=== PATIENT | female | born 1945 | race African-American/Black ===

== ENCOUNTER 2017-12-20 07:18 | Outpatient (CLI) | payer OTHER ==
[~2017-12-20 07:18] MED LIST: AMBIEN10 MG PO; BIOTIN0.5 GM MC; BUSPAR15 MG PO; CIPRO750 MG PO; CLONAZEPAM0.5 MG PO; CRESTOR5 MG PO; Colace 100MG PO; ECOTRIN81 MG PO; ENALAPRIL-HCTZ1 TAB PO; FOSAMAX70 MG PO; IBANDRONATE SO150 MG PO; NEURONTIN PO; OMEGA 3 FISH OI1 CAP PO; PERCOCET 5/3251 TAB PO; PREMARIN1.25 MG PO; SERTRALINE HCL100 MG PO; VITAMINA C; ZOLOFT100 MG PO
== END 2017-12-20 07:27 | disposition home or self-care (01) ==
LOC: RAD 07:18
DX: J32.8 Other chronic sinusitis (principal)

== ENCOUNTER 2017-12-28 08:50 | Outpatient (CLI) | payer OTHER ==
[~2017-12-28] VITALS: Ht 165.1 cm; Wt 63.5 kg
== END 2017-12-28 10:04 | disposition home or self-care (01) ==
LOC: OFIC 805 08:50
DX: H60.592 Other noninfective acute otitis externa, left ear (principal); H92.02 Otalgia, left ear; R07.0 Pain in throat; K21.0 Gastro-esophageal reflux disease with esophagitis

== ENCOUNTER 2018-01-11 07:58 | Outpatient (CLI) | payer OTHER | END 2018-01-11 07:59 | disposition home or self-care (01) | LOC: RX STUDY 07:58 | DX: R10.13 Epigastric pain (principal) ==

== ENCOUNTER 2018-02-15 07:07 | Outpatient (CLI) | payer OTHER | END 2018-02-15 07:33 | disposition home or self-care (01) | LOC: TOM 07:07 | DX: R10.9 Unspecified abdominal pain (principal) ==

== ENCOUNTER 2018-02-28 07:23 | Outpatient (CLI) | payer OTHER | END 2018-02-28 07:32 | disposition home or self-care (01) | LOC: NUCLEAR 07:23 | DX: R10.11 Right upper quadrant pain (principal) | CPT/HCPCS: 78227; A9537 ==

== ENCOUNTER 2018-08-21 07:31 | Emergency (ER) | payer OTHER ==
[~2018-08-21] VITALS: Ht 165.1 cm; Wt 61.7 kg
[2018-08-21] MEDS ORDERED: ATORVASTATIN CA10 MG (07:57)
[2018-08-21] MEDS ORDERED: VALIUM PO (15:46)
== END 2018-08-21 16:02 | disposition home or self-care (01) ==
LOC: ER 07:31
DX: G50.0 Trigeminal neuralgia (principal); R42 Dizziness and giddiness

== ENCOUNTER 2018-08-23 14:20 | Outpatient (CLI) | payer OTHER ==
[~2018-08-23 14:20] MED LIST changes: +ATORVASTATIN CA10 MG; +VALIUM PO
== END 2018-08-23 14:25 | disposition home or self-care (01) ==
LOC: MRI 14:20
DX: G50.0 Trigeminal neuralgia (principal)
CPT/HCPCS: 70551

== ENCOUNTER 2018-09-02 08:26 | Outpatient (CLI) | payer OTHER | END 2018-09-02 08:31 | disposition home or self-care (01) | LOC: SONOGRAMA 08:26 → MAMO-SONO 10:45 | DX: R10.84 Generalized abdominal pain (principal) ==

== ENCOUNTER 2019-01-10 13:30 | Outpatient (CLI) | payer OTHER | END 2019-01-10 13:32 | disposition home or self-care (01) | LOC: RAD 13:30 | DX: I11.9 Hypertensive heart disease without heart failure (principal); R06.02 Shortness of breath ==

== ENCOUNTER 2019-01-11 08:53 | Outpatient (CLI) | payer OTHER | END 2019-01-11 08:58 | disposition home or self-care (01) | LOC: LAB 08:53 | DX: R06.02 Shortness of breath (principal) ==

== ENCOUNTER 2019-01-14 10:48 | Outpatient (CLI) | payer OTHER | END 2019-01-14 11:30 | disposition home or self-care (01) | LOC: NUCLEAR 10:48 | DX: I26.99 Other pulmonary embolism without acute cor pulmonale (principal) | CPT/HCPCS: 78580; A9540 ==

== ENCOUNTER 2019-02-03 07:32 | Outpatient (CLI) | payer OTHER | END 2019-02-03 07:36 | disposition home or self-care (01) | LOC: MAMO-SONO 07:32 | DX: Z12.31 Encounter for screening mammogram for malignant neoplasm of breast (principal); Z87.898 Personal history of other specified conditions; E55.9 Vitamin D deficiency, unspecified; M85.80 Other specified disorders of bone density and structure, unspecified site; M81.0 Age-related osteoporosis without current pathological fracture ==

== ENCOUNTER 2019-05-21 09:25 | Outpatient (CLI) | payer OTHER | END 2019-05-21 09:31 | disposition home or self-care (01) | LOC: SONOGRAMA 09:25 | DX: E04.2 Nontoxic multinodular goiter (principal) ==

== ENCOUNTER 2019-06-27 07:35 | Outpatient (CLI) | payer OTHER | END 2019-06-27 07:37 | disposition home or self-care (01) | LOC: SONOGRAMA 07:35 | DX: R10.11 Right upper quadrant pain (principal) ==

== ENCOUNTER 2019-06-27 08:03 | Outpatient (CLI) | payer OTHER | END 2019-06-27 08:09 | disposition home or self-care (01) | LOC: LAB 08:03 | DX: R10.13 Epigastric pain (principal); K29.70 Gastritis, unspecified, without bleeding; B96.81 Helicobacter pylori [H. pylori] as the cause of diseases classified elsewhere ==

== ENCOUNTER 2019-07-03 10:12 | Emergency (ER) | payer OTHER ==
[~2019-07-03] VITALS: Ht 165.1 cm; Wt 59.0 kg
[2019-07-03] MEDS ORDERED: PEPCID AC20 MG PO (16:46)
[2019-07-03] MEDS ORDERED: ONDANSETRON ODT4 MG PO (16:46)
== END 2019-07-03 17:02 | disposition home or self-care (01) ==
LOC: ER 10:12
DX: E86.0 Dehydration (principal); R42 Dizziness and giddiness; R53.1 Weakness

== ENCOUNTER 2019-08-08 08:14 | Outpatient (CLI) | payer OTHER ==
[~2019-08-08 08:14] MED LIST changes: +ONDANSETRON ODT4 MG PO; +PEPCID AC20 MG PO
== END 2019-08-08 08:18 | disposition home or self-care (01) ==
LOC: TOM 08:14
PROVIDERS: ATTEND Internal Medicine Gastroenterology
DX: R10.30 Lower abdominal pain, unspecified (principal); K56.52 Intestinal adhesions [bands] with complete obstruction

== ENCOUNTER 2019-09-08 14:33 | Outpatient (CLI) | payer OTHER | END 2019-09-08 15:00 | disposition home or self-care (01) | LOC: OFIC 805 14:33 | PROVIDERS: ATTEND Otolaryngology | DX: H92.02 Otalgia, left ear (principal); M54.2 Cervicalgia; R42 Dizziness and giddiness ==

== ENCOUNTER 2019-10-14 08:45 | Outpatient (CLI) | payer OTHER | END 2019-10-14 10:44 | disposition home or self-care (01) | LOC: OFIC 805 08:45 | PROVIDERS: ATTEND Otolaryngology | DX: H92.02 Otalgia, left ear (principal); M54.2 Cervicalgia; R13.19 Other dysphagia; R22.1 Localized swelling, mass and lump, neck ==

== ENCOUNTER → 2019-10-20 08:51 | Outpatient (CLI) | payer OTHER | END | disposition home or self-care (01) | LOC: LAB 08:51 | PROVIDERS: ATTEND Otolaryngology | DX: M54.2 Cervicalgia (principal); R13.19 Other dysphagia; R22.1 Localized swelling, mass and lump, neck ==

== ENCOUNTER 2019-10-28 08:28 | Outpatient (CLI) | payer OTHER | END 2019-10-28 08:38 | disposition home or self-care (01) | LOC: TOM 08:28 | PROVIDERS: ATTEND Otolaryngology | DX: H92.02 Otalgia, left ear (principal); R13.19 Other dysphagia; M54.2 Cervicalgia; R22.1 Localized swelling, mass and lump, neck ==

== ENCOUNTER 2019-11-11 11:09 | Outpatient (CLI) | payer OTHER | END 2019-11-11 18:46 | disposition home or self-care (01) | LOC: OFIC 805 11:09 | PROVIDERS: ATTEND Otolaryngology | DX: R13.19 Other dysphagia (principal); H92.02 Otalgia, left ear; K21.9 Gastro-esophageal reflux disease without esophagitis ==

== ENCOUNTER 2019-12-15 10:43 | Emergency (ER) | payer OTHER ==
[~2019-12-15] VITALS: Ht 165.1 cm; Wt 63.0 kg
[2019-12-15] MEDS ORDERED: MECLIZINE HCL25 MG PO (13:30)
== END 2019-12-15 13:37 | disposition home or self-care (01) ==
LOC: ER 10:43
DX: R42 Dizziness and giddiness (principal); R00.2 Palpitations; F06.4 Anxiety disorder due to known physiological condition

== ENCOUNTER 2020-02-17 08:34 | Outpatient (CLI) | payer OTHER | END 2020-02-17 08:40 | disposition home or self-care (01) | LOC: MAMO-SONO 08:34 | PROVIDERS: ATTEND Specialist | DX: R92.0 Mammographic microcalcification found on diagnostic imaging of breast (principal); Z12.31 Encounter for screening mammogram for malignant neoplasm of breast ==

== ENCOUNTER → 2020-02-17 | Outpatient (CLI) | payer OTHER ==
[~2020-02-17] MED LIST changes: +MECLIZINE HCL25 MG PO
== END | disposition home or self-care (01) ==
LOC: OFIC 805 11:30
PROVIDERS: ATTEND Otolaryngology
DX: F41.8 Other specified anxiety disorders (principal); K21.9 Gastro-esophageal reflux disease without esophagitis; H92.02 Otalgia, left ear

== ENCOUNTER 2020-07-06 11:31 | Emergency (ER) | payer OTHER ==
[~2020-07-06] VITALS: Ht 165.1 cm; Wt 61.2 kg
[2020-07-06] MEDS ORDERED: ORPHENADRINE C100 MG PO (16:38)
[2020-07-06] MEDS ORDERED: DICLOFENAC POTA50 MG PO (16:38)
== END 2020-07-06 16:48 | disposition home or self-care (01) ==
LOC: ER 11:31
DX: B34.9 Viral infection, unspecified (principal); N39.0 Urinary tract infection, site not specified; E86.0 Dehydration; M62.830 Muscle spasm of back; R50.9 Fever, unspecified; Z03.818 Encounter for observation for suspected exposure to other biological agents ruled out

== ENCOUNTER 2020-08-03 07:22 | Outpatient (CLI) | payer OTHER ==
[~2020-08-03 07:22] MED LIST changes: +DICLOFENAC POTA50 MG PO; +ORPHENADRINE C100 MG PO
== END 2020-08-03 07:29 | disposition home or self-care (01) ==
LOC: RAD 07:22 → LAB 07:22
PROVIDERS: ATTEND Ophthalmology
DX: D68.8 Other specified coagulation defects (principal); H25.011 Cortical age-related cataract, right eye

== ENCOUNTER 2020-09-14 11:31 | Outpatient (CLI) | payer OTHER | END 2020-09-14 11:39 | disposition home or self-care (01) | LOC: RAD 11:31 | PROVIDERS: ATTEND Physical Medicine & Rehabilitation | DX: M47.812 Spondylosis without myelopathy or radiculopathy, cervical region (principal); M47.816 Spondylosis without myelopathy or radiculopathy, lumbar region ==

== ENCOUNTER 2020-09-21 11:28 | Outpatient (CLI) | payer OTHER | END 2020-09-21 15:09 | disposition home or self-care (01) | LOC: MRI 11:28 | PROVIDERS: ATTEND Orthopaedic Surgery Orthopaedic Surgery of the Spine | DX: Z98.1 Arthrodesis status (principal) | CPT/HCPCS: 72148 ==

== ENCOUNTER 2020-11-10 14:57 | Emergency (ER) | payer OTHER ==
[~2020-11-10] VITALS: Ht 165.1 cm; Wt 60.8 kg
[2020-11-10] MEDS ORDERED: DUI500 PO (17:12)
== END 2020-11-10 17:17 | disposition home or self-care (01) ==
LOC: ER 14:57
DX: J35.01 Chronic tonsillitis (principal); Z11.52 Encounter for screening for COVID-19

== ENCOUNTER 2020-11-29 07:10 | Outpatient (CLI) | payer OTHER ==
[~2020-11-29 07:10] MED LIST changes: +DUI500 PO
== END 2020-11-29 07:17 | disposition home or self-care (01) ==
LOC: MRI 07:10
PROVIDERS: ATTEND Psychiatry & Neurology Clinical Neurophysiology
DX: G50.0 Trigeminal neuralgia (principal)
CPT/HCPCS: 70551

== ENCOUNTER → 2020-11-29 08:22 | Outpatient (CLI) | payer OTHER | END | disposition home or self-care (01) | LOC: LAB 08:22 | PROVIDERS: ATTEND Internal Medicine Cardiovascular Disease | DX: I11.9 Hypertensive heart disease without heart failure (principal); E78.00 Pure hypercholesterolemia, unspecified ==

== ENCOUNTER 2021-01-13 16:08 | Emergency (ER) | payer OTHER ==
[~2021-01-13] VITALS: Ht 165.1 cm; Wt 60.8 kg
== END 2021-01-13 19:55 | disposition home or self-care (01) ==
LOC: ER 16:08
DX: M94.0 Chondrocostal junction syndrome [Tietze] (principal); R07.89 Other chest pain

== ENCOUNTER 2021-03-14 11:14 | Outpatient (CLI) | payer OTHER | END 2021-03-14 11:22 | disposition home or self-care (01) | LOC: MAMO-SONO 11:14 | PROVIDERS: ATTEND Specialist | DX: Z12.31 Encounter for screening mammogram for malignant neoplasm of breast (principal); Z87.898 Personal history of other specified conditions; R92.0 Mammographic microcalcification found on diagnostic imaging of breast ==

== ENCOUNTER 2021-04-25 09:21 | Outpatient (CLI) | payer OTHER | END 2021-04-25 09:28 | disposition home or self-care (01) | LOC: LAB 09:21 | DX: M53.9 Dorsopathy, unspecified (principal) ==

== ENCOUNTER 2021-05-11 09:55 | Outpatient (CLI) | payer OTHER | END 2021-05-11 10:00 | disposition home or self-care (01) | LOC: RAD 09:55 | PROVIDERS: ATTEND Orthopaedic Surgery Orthopaedic Surgery of the Spine | DX: M54.2 Cervicalgia (principal) | CPT/HCPCS: 72156; Q9965 ==

== ENCOUNTER 2021-08-11 10:16 | Outpatient (CLI) | payer OTHER | END 2021-08-11 10:25 | disposition home or self-care (01) | LOC: SONOGRAMA 10:16 | PROVIDERS: ATTEND Internal Medicine | DX: E04.2 Nontoxic multinodular goiter (principal); R22.1 Localized swelling, mass and lump, neck ==

== ENCOUNTER 2021-11-04 07:30 | Outpatient (CLI) | payer OTHER | END 2021-11-04 07:41 | disposition home or self-care (01) | LOC: RAD 07:30 | PROVIDERS: ATTEND Internal Medicine Pulmonary Disease | DX: R91.1 Solitary pulmonary nodule (principal) ==

== ENCOUNTER → 2022-04-11 | Outpatient (CLI) | payer OTHER | END | disposition home or self-care (01) | LOC: MAMO-SONO 11:52 | PROVIDERS: ATTEND Specialist | DX: R92.0 Mammographic microcalcification found on diagnostic imaging of breast (principal); Z80.3 Family history of malignant neoplasm of breast ==

== ENCOUNTER → 2022-04-26 07:30 | Outpatient (CLI) | payer OTHER | END | disposition home or self-care (01) | LOC: LAB 07:30 | PROVIDERS: ATTEND Internal Medicine | DX: M81.0 Age-related osteoporosis without current pathological fracture (principal) ==

== ENCOUNTER 2022-07-26 12:09 | Outpatient (CLI) | payer OTHER | END 2022-07-26 12:22 | disposition home or self-care (01) | LOC: SONOGRAMA 12:09 | PROVIDERS: ATTEND Internal Medicine | DX: E04.2 Nontoxic multinodular goiter (principal) ==

== ENCOUNTER 2022-08-15 12:53 | Inpatient (IN) | payer OTHER ==
[~2022-08-15] VITALS: Ht 165.1 cm; Wt 56.2 kg
[2022-08-22] MEDS ORDERED: GABAPENTIN100 M2 (07:48)
[2022-08-22] MEDS ORDERED: VITAMIN C1000 MG (07:48)
[2022-08-22] MEDS ORDERED: FLONASE16 GM (07:48)
[2022-08-23] MEDS ORDERED: PERCOCET 5-3251 EACH PO (07:37)
[2022-08-23] MEDS ORDERED: ELIQUIS2.5 MG PO (07:37)
[2022-08-23] MEDS ORDERED: DUI500 PO (07:37)
== END 2022-08-24 19:32 | DRG 470 ==
LOC: SURH 08-22 07:18 → O/R 08-22 07:18 → SURG 08-22 10:00 → SURH 08-22 12:26
PROVIDERS: ADMIT Orthopaedic Surgery; ATTEND Orthopaedic Surgery
PROC: 0SRD0J9 Replacement of Left Knee Joint with Synthetic Substitute, Cemented, Open Approach (ICD-10-PCS; principal; 2022-08-22 10:00)
DX: M17.12 Unilateral primary osteoarthritis, left knee (principal); M80.062A Age-related osteoporosis with current pathological fracture, left lower leg, initial encounter for fracture; D62 Acute posthemorrhagic anemia; I10 Essential (primary) hypertension; G47.33 Obstructive sleep apnea (adult) (pediatric); E03.9 Hypothyroidism, unspecified; Z96.652 Presence of left artificial knee joint; Z20.822 Contact with and (suspected) exposure to COVID-19

== ENCOUNTER 2022-08-29 14:48 | Emergency (ER) | payer OTHER ==
[~2022-08-29] VITALS: Ht 165.1 cm; Wt 56.7 kg
[~2022-08-29 14:48] MED LIST changes: +ELIQUIS2.5 MG PO; +FLONASE16 GM; +GABAPENTIN100 M2; +PERCOCET 5-3251 EACH PO; +VITAMIN C1000 MG
== END 2022-08-29 21:56 | disposition home or self-care (01) ==
LOC: ER 14:48
DX: R00.2 Palpitations (principal); K62.89 Other specified diseases of anus and rectum; K94.03 Colostomy malfunction; K29.70 Gastritis, unspecified, without bleeding; Z91.041 Radiographic dye allergy status; D64.9 Anemia, unspecified

== ENCOUNTER 2023-06-05 09:56 | Outpatient (CLI) | payer OTHER | END 2023-06-05 10:06 | disposition home or self-care (01) | LOC: MAMO-SONO 09:56 | PROVIDERS: ATTEND Specialist | DX: Z80.3 Family history of malignant neoplasm of breast (principal); Z12.31 Encounter for screening mammogram for malignant neoplasm of breast ==

== ENCOUNTER 2023-06-11 07:56 | Outpatient (CLI) | payer OTHER | END 2023-06-11 08:06 | disposition home or self-care (01) | LOC: MAMO-SONO 07:56 | PROVIDERS: ATTEND Specialist | DX: Z80.3 Family history of malignant neoplasm of breast (principal) ==

== ENCOUNTER 2023-11-08 07:07 | Outpatient (CLI) | payer OTHER | END 2023-11-08 07:13 | disposition home or self-care (01) | LOC: MRI 07:07 | PROVIDERS: ATTEND Anesthesiology | DX: M54.50 Low back pain, unspecified (principal); M53.9 Dorsopathy, unspecified | CPT/HCPCS: 72141; 72148 ==

== ENCOUNTER 2024-12-05 10:47 | Outpatient (CLI) | payer OTHER | END 2024-12-05 10:51 | disposition home or self-care (01) | LOC: SONOGRAMA 10:47 | PROVIDERS: ATTEND Specialist | DX: R31.0 Gross hematuria (principal) ==